=== PATIENT | female | born 1990 | race Caucasian/White ===

== ENCOUNTER 2019-12-28 13:18 | Emergency (ER) | payer MEDICAID, SELFPAY ==
[2019-12-28 13:32] VITALS: BP 128/92; PULSE 87; RESP 17; TEMP 37.2; O2SAT 100; BMI 28.3
--- NOTE | 2019-12-28 13:56 | US_ITS ---
WS: [id number] TRANSABDOMINAL FIRST TRIMESTER ULTRASOUND HISTORY: vaginal bleeding and abdominal cramping : 5 PARA: 4 COMPARISON: None available. FINDINGS: Cervical length is 3.2 cm; closed. Single live intrauterine . [place] rump length measuring 0.5 cm. Suggest 6 weeks 2 days gestation a due date of August 20, 2020 Yolk sac measures 0.2 cm. Gestational sac measures 6w2d cm. cardiac tones 129 BPM. Estimated date of delivery 08/20/2020. Activity is noted in the region of the crown-rump length. . Right ovary measures 1.2 cm x 3.0 cm x 1.2 cm. US/US OB <= 14 weeks fetus [id number] IMPRESSION: 6 weeks 2 day due date August 20, 2020
[2019-12-28 14:25] LABS: Basophils % 0.3 %; Eosinophils % 0.6 %; Hemoglobin 12.7 g/dL (11.5-15.3); Lymphocytes # 1.9 10^3/uL (0.8-4.8); Lymphocytes % 28.7 %; Mean Corpuscular HGB Conc 32.6 g/dL (30.0-36.0); Mean Corpuscular Hemoglobin 31.4 pg (28.0-34.0); Mean Corpuscular Volume 96.5 fL (81-99); Mean Platelet Volume 11.2 fL (7.4-10.4); Monocytes # 0.4 10^3/uL (0.2-0.9); Monocytes % 5.6 %; Neutrophils # 4.2 10^3/uL (1.8-7.7); Neutrophils % 64.5 %; Nucleated Red Blood Cells % 0 %; Platelet Count 192 10^3/cmm (130-400); Red Blood Count 4.04 10^6/uL (4.1-5.3); Red Cell Distribution Width 13.3 % (12.1-15.1); White Blood Count 6.6 10^3/uL (4.0-10.0)
[2019-12-28 14:52] LABS: Alanine Aminotransferase 8 U/L (0-33); Alkaline Phosphatase 66 IU/L (35-105); Anion Gap 16.8 (5-19); Aspartate Amino Transferase 11 U/L (0-32); Blood Urea Nitrogen 7 mg/dL (6-20); Calcium 9.7 mg/dL (8.5-10.5); Carbon Dioxide 22 mmol/L (22-29); Chloride 103 mmol/L (98-107); Globulin 2.8 g/dL (1.3-4.6); Glomerular Filtration Rate 98.3 mL/min (90-130); Glucose 85 mg/dL (65-115); Osmolality Calculated 281 mOsm/kg (285-295); Potassium 3.8 mmol/L (3.5-5.1); Sodium 138 mmol/L (136-145); Total Bilirubin 0.2 mg/dL (0.15-1.2); Total Protein 6.8 g/dL (6.6-8.7)
--- NOTE | 2019-12-28 15:09 | PC.NURSE ---
Patient is changing back into clothes, okay by doctor
[2019-12-28 15:27] LABS: Urine Appearance Hazy (CLEAR); Urine Color Yellow (Yellow); pH Urine 6 (5-7)
[2019-12-28 15:28] LABS: Add Urine Microscopic? YES; Bilirubin Urine Neg (NEGATIVE); Blood Urine Neg (Negative); Glucose Urine UA Norm (Normal); Ketones Urine Negative (Negative); Leukocyte Esterase Urine Negative (Negative); Nitrate Urine Positive (Negative); Protein Urine Neg (Negative); Urobilinogen Urine Norm (Negative)
[2019-12-28 15:30] LABS: RBC Urine 0-4 /hpf (0-2)
[2019-12-28 15:31] LABS: Add Urine Culture? No; Amorphous Sediment Urine 1+; Bacteria Urine 4+; Transitional Epi Cells Urine 0-4 /hpf
--- NOTE | 2019-12-28 15:36 | ED_ITS ---
HPI - General: Chief complaint: Vaginal Bleeding Stated complaint: /bleeding/cramping Time Seen by Provider: 12/28/19 13:33 Source: patient Mode of arrival: ambulatory Limitations: no limitations History of Present Illness: HPI Narrative: Patient is a 5 para 4 patient who presents to the emergency department with vaginal bleeding of 2 days duration. She states that she started cramping about 2 weeks ago but has been worse in the last 24 hours. She also said the bleeding became worse today. She has however not needed to use any menstrual pad. She denies any fever, vaginal discharge. MD Complaint: abdominal pain and vaginal bleeding Onset (ago): week(s) (2) Pain Consistency: intermittent Location: pelvis Severity: moderate Quality: Cramping Relieving factors: none Exacerbating factors: none Vaginal discharge: none Date of Last Menstrual Period: 11/11/19 Patient : Yes Number of Weeks : 7 OB History - Current : no complications OB History - Previous Pregnancies: no complications care: followed by OB Associated symptoms: Reports no associated symptoms and abdominal pain; Deny dysuria, headache(s), nausea or vomiting Related Data: : 5 Review of Systems General: Reports: 10 or more systems reviewed and unremarkable except in HPI and below Const: Denies: fever(s), chills or body aches Eyes: Denies: change in vision or blurry vision Card: Denies: palpitations, irregular heart rhythm, edema or swelling of feet/ankles Resp: Denies: dyspnea, productive cough or non-productive cough GI: Reports: abdominal pain; Denies: nausea or vomiting : Reports: vaginal bleeding; Denies: flank pain, difficulty voiding, dysuria, urinary frequency, urinary urgency or urinary hesitancy Musc: Denies: neck pain, back pain or extremity swelling Skin/Breast: Denies: rash, pruritus or erythema Neuro: Denies: headache(s), numbness in extremities or weakness in extremities Endo: Denies: polyuria, polydipsia or tired all the time PFSH ED PFSH: Social History Smoking and tobacco status: current every day smoker Female Reproductive History: Date of last menstrual period: 11/11/19 : 5 Physical Exam Const: COMMON NORMALS: no acute distress, average body habitus, patient oriented x3, no limitations, healthy appearing, alert and well nourished Neck/C-Spine: COMMON NORMALS: full ROM, supple, no meningeal signs, no JVD and No carotid bruits Resp: COMMON NORMALS: normal respiratory effort, No retractions, No use of accessory muscles, clear to auscultation bilaterally and percussion normal AUSCULTATION: clear to auscultation bilaterally PERCUSSION: percussion normal Cardio: COMMON NORMALS: no JVD, regular rate, regular rhythm, S1 normal heart sound present, S2 normal heart sound present, No gallops present (Cardio), No clicks present (Cardio), No murmurs present (Cardio), No rub (Cardio) and Peripheral pulses 2+ throughout RATE: regular rate RHYTHM: regular rhythm HEART SOUNDS: S1 normal heart sound present and S2 normal heart sound present PERIPHERAL PULSES: Peripheral pulses 2+ throughout GI: COMMON NORMALS: Normal to inspection, nondistended, normoactive bowel sounds present, Soft to palpation, non-tender, No hepatosplenomegaly present, no masses and no bruits PALPATION: Yes Soft to palpation and Yes No hepatosplenomegaly present : COMMON NORMALS: Yes no CVA tenderness BLADDER/KIDNEY EXAM: Yes no CVA tenderness SPECULUM EXAM - CERVIX: Yes Cervical os closed, No Tissue present in the cervical os, No Cervical bleeding, Yes mucoid cervix, Yes Abnormal cervical discharge present, No IUD string present, No Cervical lesion present, No Cervical mass present, No Cervical laceration present and No Cervical tenderness present BIMANUAL EXAM - VAGINA & UTERUS: No Cervical tenderness present Back/Pelvis: COMMON NORMALS: no CVA tenderness Extremity: COMMON NORMALS: normal to inspection, full ROM, capillary refill normal, no calf tenderness and no pedal edema Neuro: COMMON NORMALS: patient oriented x3 SENSORIUM/ORIENTATION: Yes alert MENINGEAL SIGNS: Yes no meningeal signs Skin: COMMON NORMALS: no rashes or lesions noted, no wounds, turgor normal, no jaundice, no petechiae and no mottling GENERAL SKIN EXAM: no rashes or lesions noted and turgor normal Procedures Perimortem Number of Weeks : 7 Course Reevaluation(s): Reevaluation #1: Discussed her lab and imaging findings with her. Ultrasound shows a single intrauterine , the fetus looks healthy and without concerns. UA suggestive of urinary tract infection. Other labs unremarkable. beta hCG levels at expected levels. We will discharge her home with a prescription for antibiotics. She is advised to call her data base administrator and schedule an appointment with them as soon as possible. She voiced unders tanding and all her questions were answered. Time: 15:36 Vital Signs: Vital signs: Vital Signs Temperature 98.9 F 12/28/19 13:32 Pulse Rate 87 12/28/19 13:32 Respiratory Rate 17 12/28/19 13:32 Blood Pressure 128/92 12/28/19 13:32 Pulse Oximetry 100 12/28/19 13:32 MDM - OB/Uterine Contractions MDM Narrative: Medical decision making narrative: 29-year-old female patient who is about 6 weeks presents to the emergency department with vaginal bleeding. She did not require menstrual pads and on examination no active bleeding was noted, no dried or old blood was seen in the vagina. Ultrasound was negative for acute findings and showed a viable single intrauterine fetus. UA was suggestive of a urinary tract infection and so she is discharged home on oral nitrofurantoin. She is to follow-up with her data base administrator. Medical Records: Attestation: I reviewed the patient's medical records. Lab Data: Attestation: I reviewed the patient's lab results. Labs: Lab Results 12/28/19 12/28/19 12/28/19 Range/Units 14:18 14:18 15:07 WBC 6.6 (4.0-10.0) 10^3/ uL RBC 4.04 L (4.1-5.3) 10^6/u L Hgb 12.7 (11.5-15.3) g/dL Hct 39.0 (37.0-47.0) % MCV 96.5 (81-99) fL MCH 31.4 (28.0-34.0) pg MCHC 32.6 (30.0-36.0) g/dL RDW 13.3 (12.1-15.1) % Plt Count 192 (130-400) 10^3/c mm MPV 11.2 H (7.4-10.4) fL Neut % (Auto) 64.5 % Lymph % (Auto) 28.7 % [place] % (Auto) 5.6 % Eos % (Auto) 0.6 % Baso % (Auto) 0.3 % Neut # (Auto) 4.2 (1.8-7.7) 10^3/u L Lymph # (Auto) 1.9 (0.8-4.8) 10^3/u L [place] # (Auto) 0.4 (0.2-0.9) 10^3/u L Eos # (Auto) 0.0 (0.0-0.8) 10^3/u L Baso # (Auto) 0.0 (0.0-0.1) 10^3/u L Nucleated RBC % (a uto) 0 % Nucleated RBCs # 0.0 /100WBC Sodium 138 (136-145) mmol/L Potassium 3.8 (3.5-5.1) mmol/L Chloride 103 (98-107) mmol/L Carbon Dioxide 22 (22-29) mmol/L Anion Gap 16.8 (5-19) BUN 7 (6-20) mg/dL Creatinine 0.7 (0.5-0.9) mg/dL GFR Calculation 98.3 (90-130) mL/min Glucose 85 (65-115) mg/dL Calculated Osmolal ity 281 L (285-295) mOsm/k g Calcium 9.7 (8.5-10.5) mg/dL Total Bilirubin 0.2 (0.15-1.2) mg/dL AST 11 (0-32) U/L ALT 8 (0-33) U/L Alkaline Phosphata se 66 (35-105) IU/L Total Protein 6.8 (6.6-8.7) g/dL Albumin 4.0 (3.5-5.2) g/dL Globulin 2.8 (1.3-4.6) g/dL Ser , Bill i-Qnt 4816.00 mIU/mL Urine Color Yellow (Yellow) Urine Appearance Hazy A (CLEAR) Urine pH 6 (5-7) Ur Specific Gravit y 1.010 (1.005-1.030) Urine Protein Neg (Negative) Urine Glucose (UA) Norm (Normal) Urine Ketones Negative (Negative) Urine Blood Neg (Negative) Urine Nitrate Positive H (Negative) Urine Bilirubin Neg (NEGATIVE) Urine Urobilinogen Norm (Negative) mg/dL Ur Leukocyte Flory ase Negative (Negative) Urine RBC 0-4 H (0-2) /hpf Urine WBC None (0-5) /hpf Ur Squamous Epith Cells 10-15 H (0-5) Ur Transition Epit h Cell 0-4 /hpf Amorphous Sediment 1+ Urine Bacteria 4+ H (NONE) Imaging Data^: US OB: Radiologist's impression: [address] [id number] Ultrasound Report Signed Patient: Deneen Barron #: [id number] : 1990Acct#:[id number] Age/Sex: 29 / FADM Date: 12/28/19 Loc: ERRoom/Bed: Attending Dr: Ordering Provider/Ordering MD: Callie Oconnell MD, [facility] [place] Date of Service: 12/28/19 Procedure(s): US OB <= 14 weeks fetus [id number] Accession Number(s): [id number] Report Number: [id number] WS: [id number] TRANSABDOMINAL FIRST TRIMESTER ULTRASOUND HISTORY: vaginal bleeding and abdominal cramping : 5 PARA: 4 COMPARISON: None available. FINDINGS: Cervical length is 3.2 cm; closed. Single live intrauterine . [place] rump length measuring 0.5 cm. Suggest 6 weeks 2 days gestation a due date of August 20, 2020 Yolk sac measures 0.2 cm. Gestational sac measures 6w2d cm. cardiac tones 129 BPM. Estimated date of delivery 08/20/2020. Activity is noted in the region of the crown-rump length. . Right ovary measures 1.2 cm x 3.0 cm x 1.2 cm. US/US OB <= 14 weeks fetus [id number] IMPRESSION: 6 weeks 2 day due date August 20, 2020 Dictated By:Cirilo Huang DO Signed By:Cirilo Huang DOSigned Date/Time:12/28/19 1506 Discharge Plan Discharge Patient Disposition: Home, Self-Care Clinical Impression: Urinary tract infection affecting , Vaginal bleeding Condition: Stable Prescriptions: New nitrofurantoin macrocrystal 100 mg capsule 100 mg PO BID 7 Days Qty: 14 RF: 0 Continued amoxicillin 500 mg Capsule 500 mg PO TID RF: 0 Zyrtec 10 mg Tablet 10 mg PO DAILY RF: 0 Pepcid 20 mg Tablet 20 mg PO BID PRN (Reason: unknown) RF: 0 Reglan 5 mg Tablet 5 mg PO QID PRN (Reason: unknown) RF: 0 28 mg iron- 800 mcg Tablet 1 tab PO DAILY RF: 0 Discharge Orders: Discharge Order (Routine); Ordered 12/28/19 Ordered By: Callie Oconnell Referrals: [facility] [Other] Patient Instructions: Urinary Tract Infection in Women (ED) Activity Restrictions/Additional Instructions: Return for any new or worsening symptoms. Take the antibiotic as prescribed. Continue your home medications. Follow-up with your data base administrator as soon as you can. Coding Level of Care Code ED Rate Inserter for Brenda Willaim
[2019-12-28 16:31] VITALS: BP 104/76; PULSE 77; RESP 16; O2SAT 99
== END 2019-12-28 16:00 | disposition home or self-care (01) ==
PROVIDERS: Emergency Provider Family Medicine
DX: O23.41 Unspecified infection of urinary tract in pregnancy, first trimester (principal); O46.91 Antepartum hemorrhage, unspecified, first trimester; O99.331 Smoking (tobacco) complicating pregnancy, first trimester; F17.210 Nicotine dependence, cigarettes, uncomplicated; Z3A.01 Less than 8 weeks gestation of pregnancy
CPT/HCPCS: 12345; 36415; 76801; 80053; 81001; 84702; 85025; 87210; 87491; 87591; 87661; 99283

== ENCOUNTER 2019-12-30 11:45 | Emergency (ER) | payer MEDICAID, SELFPAY ==
[2019-12-30 11:54] VITALS: BP 125/79; PULSE 94; RESP 18; TEMP 36.9; O2SAT 100; BMI 28.3
--- NOTE | 2019-12-30 12:23 | US_ITS ---
WS: [id number] TRANSABDOMINAL AND TRANSVAGINAL FIRST TRIMESTER ULTRASOUND HISTORY: cramping, bleeding : 5 PARA: 4 COMPARISON: None available. FINDINGS: Cervical length is 3.0 cm; closed. Single live intrauterine . [place] rump length measuring 0.7 cm. Yolk sac measures 0.2 cm. Gestational sac measures 6w4d cm. cardiac tones 131 BPM. Estimated date of delivery 08/20/2020. An intrauterine is observed. Right ovary measures 1.1 cm x 1.7 cm x 1.0 cm. Left ovary measures 2.0 cm x 2.1 cm x 1.8 cm. US/US OB <=14 wk fetus w transvag IMPRESSION: There is continued evidence of a intrauterine with heart rate c rown-rump length measures 6.4 cm at this point the fetus is not aborted.
[2019-12-30 12:25] LABS: Add Urine Microscopic? NO
[2019-12-30 12:28] LABS: Bilirubin Urine Neg (NEGATIVE); Blood Urine Neg (Negative); Glucose Urine UA Norm (Normal); Ketones Urine Negative (Negative); Leukocyte Esterase Urine Negative (Negative); Nitrate Urine Negative (Negative); Protein Urine Neg (Negative); Specific Gravity, Urine 1.005 (1.005-1.030); Urine Appearance Clear (CLEAR); Urine Color Yellow (Yellow); Urobilinogen Urine Norm (Negative); pH Urine 7 (5-7)
[2019-12-30 12:31] LABS: HCG Qualitative Urine. Positive (Negative)
[2019-12-30 12:33] VITALS: O2SAT 98
--- NOTE | 2019-12-30 12:33 | ED_ITS ---
HPI - Female Genitourinary General: Chief complaint: Urogenital-Female Stated complaint: 6 WEEKS PREG/VAG BLEEDING Time Seen by Provider: 12/30/19 11:57 History of Present Illness: HPI Narrative: This patient is a 29-year-old female who is a G5, P4. She is approximately 6 weeks . She has had some problems with her prior pregnancies but is carried out to term. She is never had vaginal bleeding with her prior pregnancies. She sees Dr. Mead. She came in a few days ago with some spotting vaginally. She had an ultrasound at that time that showed a 6-week 2-day IUP with a good heartbeat. Her quant at that time was around 4800. She is back today because this morning at around 930 she had an episode of bright red bleeding with clots in the toilet. She had one other lesser episode after that and now is back to just having spotting. She diaz s some discomfort in the suprapubic region and some cramping. She is very worried about a miscarriage. When she was treated here a few days ago she was started on Macrobid for UTI. Her urinary symptoms have resolved. MD elicited complaint: vaginal bleeding and possible miscarriage Associated symptoms: Deny abdominal pain, headache(s) or nausea Date of Last Menstrual Period: 11/11/19 Review of Systems General: Reports: 10 or more systems reviewed and unremarkable except in HPI and below Const: Denies: fever(s), chills, fatigue or malaise Eyes: Denies: change in vision ENMT: Reports: ear or mastoid pain; Denies: odynophagia Card: Denies: chest pain or swelling of feet/ankles Resp: Denies: dyspnea, productive cough or non-productive cough GI: Denies: abdominal pain, nausea or vomiting : Reports: urinary frequency, vaginal bleeding and pelvic pain; Denies: flank pain or difficulty voiding Musc: Denies: neck pain or back pain Skin/Breast: Denies: rash Neuro: Denies: headache(s), numbness in extremities or weakness in extremities Michael/Lymph: Denies: easy bruising or easy bleeding PFSH ED PFSH: Social History Smoking and tobacco status: current every day smoker Female Reproductive History: Date of last menstrual period: 11/11/19 Physical Exam Const: COMMON NORMALS: no acute distress, patient oriented x3, no limitations and alert GENERAL APPEARANCE: cooperative and comfortable HENMT: HEAD & SCALP: normal to inspection FACE & SINUS: normal facial exam Eye: GENERAL EYE: appearance normal, both eyes and all related structures Neck/C-Spine: COMMON NORMALS: supple, no meningeal signs and no JVD Chest: COMMONS NORMALS: normal inspection of the chest Resp: COMMON NORMALS: normal respiratory effort, No use of accessory muscles and clear to auscultation bilaterally AUSCULTATION: clear to auscultation bilaterally Cardio: COMMON NORMALS: no JVD, regular rate, regular rhythm and No murmurs present (Cardio) RATE: regular rate RHYTHM: regular rhythm GI: COMMON NORMALS: Normal to inspection, nondistended, normoactive bowel sounds present and Soft to palpation INSPECTION: Yes normal to inspection AUSCULTATION: Yes normoactive bowel sounds PALPATION: Yes Soft to palpation and Yes Tenderness to palpation present (GI) (Suprapubic) Back/Pelvis: COMMON NORMALS: thoracic and lumbar spine normal to inspection Extremity: COMMON NORMALS: normal to inspection Neuro: COMMON NORMALS: patient oriented x3, moves all extremities, no focal motor deficits and no sensory deficits noted SENSORIUM/ORIENTATION: Yes alert MENINGEAL SIGNS: Yes no meningeal signs Psych: COMMON NORMALS: mental status grossly normal, cooperative and normal affect Skin: COMMON NORMALS: no rashes or lesions noted and turgor normal GENERAL SKIN EXAM: no rashes or lesions noted and turgor normal Course ED course: 29-year-old healthy female with a approximately 6-week . She is having some bleeding and cramping. Her quantitative hCG was relatively low on her last check. Repeat today was elevated but not quite double as we would hope to see. Repeat ultrasound today showed again a IUP with a good heartbeat. Today's measurements were 6 weeks 4 days. She was reassured by this. She will go home and take it easy. She will follow-up with her OB doctor. She is going to continue the antibiotic although urine is at this point looking much better. Vital Signs: Vital signs: Vital Signs Temperature 98.4 F 12/30/19 11:54 Pulse Rate 85 12/30/19 14:37 Respiratory Rate 18 12/30/19 14:37 Blood Pressure 113/84 12/30/19 14:37 Pulse Oximetry 98 12/30/19 14:37 MDM - Female Lab Data: Labs: Lab Results 12/30/19 12/30/19 12/30/19 Range/Units 12:00 12:00 12:44 WBC 8.4 (4.0-10.0) 10^3/ uL RBC 4.40 (4.1-5.3) 10^6/u L Hgb 13.9 (11.5-15.3) g/dL Hct 41.9 (37.0-47.0) % MCV 95.2 (81-99) fL MCH 31.6 (28.0-34.0) pg MCHC 33.2 (30.0-36.0) g/dL RDW 13.2 (12.1-15.1) % Plt Count 217 (130-400) 10^3/c mm MPV 11.2 H (7.4-10.4) fL Neut % (Auto) 67.8 % Lymph % (Auto) 26.1 % [place] % (Auto) 5.3 % Eos % (Auto) 0.5 % Baso % (Auto) 0.2 % Neut # (Auto) 5.7 (1.8-7.7) 10^3/u L Lymph # (Auto) 2.2 (0.8-4.8) 10^3/u L [place] # (Auto) 0.5 (0.2-0.9) 10^3/u L Eos # (Auto) 0.0 (0.0-0.8) 10^3/u L Baso # (Auto) 0.0 (0.0-0.1) 10^3/u L Nucleated RBC % (a uto) 0 % Nucleated RBCs # 0.0 /100WBC Sodium (136-145) mmol/L Potassium (3.5-5.1) mmol/L Chloride (98-107) mmol/L Carbon Dioxide (22-29) mmol/L Anion Gap (5-19) BUN (6-20) mg/dL Creatinine (0.5-0.9) mg/dL GFR Calculation (90-130) mL/min Glucose (65-115) mg/dL Calculated Osmolal ity (285-295) mOsm/k g Calcium (8.5-10.5) mg/dL Total Bilirubin (0.15-1.2) mg/dL AST (0-32) U/L ALT (0-33) U/L Alkaline Phosphata se (35-105) IU/L Total Protein (6.6-8.7) g/dL Albumin (3.5-5.2) g/dL Globulin (1.3-4.6) g/dL HCG, Qual Positive H (Negative) Ser , Bill i-Qnt mIU/mL Urine Color Yellow (Yellow) Urine Appearance Clear (CLEAR) Urine pH 7 (5-7) Ur Specific Gravit y 1.005 (1.005-1.030) Urine Protein Neg (Negative) Urine Glucose (UA) Norm (Normal) Urine Ketones Negative (Negative) Urine Blood Neg (Negative) Urine Nitrate Negative (Negative) Urine Bilirubin Neg (NEGATIVE) Urine Urobilinogen Norm (Negative) mg/dL Ur Leukocyte Flory ase Negative (Negative) Blood Type Rho(D) Type Antibody Screen 12/30/19 12/30/19 12/30/19 Range/Units 12:44 12:44 12:44 WBC (4.0-10.0) 10^3/ uL RBC (4.1-5.3) 10^6/u L Hgb (11.5-15.3) g/dL Hct (37.0-47.0) % MCV (81-99) fL MCH (28.0-34.0) pg MCHC (30.0-36.0) g/dL RDW (12.1-15.1) % Plt Count (130-400) 10^3/c mm MPV (7.4-10.4) fL Neut % (Auto) % Lymph % (Auto) % [place] % (Auto) % Eos % (Auto) % Baso % (Auto) % Neut # (Auto) (1.8-7.7) 10^3/u L Lymph # (Auto) (0.8-4.8) 10^3/u L [place] # (Auto) (0.2-0.9) 10^3/u L Eos # (Auto) (0.0-0.8) 10^3/u L Baso # (Auto) (0.0-0.1) 10^3/u L Nucleated RBC % (a uto) % Nucleated RBCs # /100WBC Sodium 140 (136-145) mmol/L Potassium 4.2 (3.5-5.1) mmol/L Chloride 104 (98-107) mmol/L Carbon Dioxide 24 (22-29) mmol/L Anion Gap 16.2 (5-19) BUN 8 (6-20) mg/dL Creatinine 0.7 (0.5-0.9) mg/dL GFR Calculation 98.3 (90-130) mL/min Glucose 96 (65-115) mg/dL Calculated Osmolal ity 286 (285-295) mOsm/k g Calcium 10.1 (8.5-10.5) mg/dL Total Bilirubin 0.2 (0.15-1.2) mg/dL AST 14 (0-32) U/L ALT 10 (0-33) U/L Alkaline Phosphata se 74 (35-105) IU/L Total Protein 7.0 (6.6-8.7) g/dL Albumin 4.5 (3.5-5.2) g/dL Globulin 2.5 (1.3-4.6) g/dL HCG, Qual (Negative) Ser , Bill i-Qnt 6535.00 mIU/mL Urine Color (Yellow) Urine Appearance (CLEAR) Urine pH (5-7) Ur Specific Gravit y (1.005-1.030) Urine Protein (Negative) Urine Glucose (UA) (Normal) Urine Ketones (Negative) Urine Blood (Negative) Urine Nitrate (Negative) Urine Bilirubin (NEGATIVE) Urine Urobilinogen (Negative) mg/dL Ur Leukocyte Flory ase (Negative) Blood Type A Negative Rho(D) Type Negative Antibody Screen Negative Discharge Plan Discharge Patient Disposition: Home, Self-Care Clinical Impression: Miscarriage, threatened, early Condition: Stable Prescriptions: No Action amoxicillin 500 mg Capsule 500 mg PO TID RF: 0 Zyrtec 10 mg Tablet 10 mg PO DAILY RF: 0 Pepcid 20 mg Tablet 20 mg PO BID PRN (Reason: unknown) RF: 0 Reglan 5 mg Tablet 5 mg PO QID PRN (Reason: unknown) RF: 0 28 mg iron- 800 mcg Tablet 1 tab PO DAILY RF: 0 nitrofurantoin macrocrystal 100 mg capsule 100 mg PO BID 7 Days Qty: 14 RF: 0 Discharge Orders: Discharge Order (Routine); Ordered 12/30/19 Ordered By: Angela Layne Referrals: [facility] [Other] Discharge Diet: Usual diet Discharge Activity: Resume usual activity Patient Instructions: Threatened Miscarriage (ED) Activity Restrictions/Additional Instructions: Complete the antibiotic prescription. Rest, follow up with Dr. Mead. Discharge Date/Time: 12/30/19 14:37 Coding Level of Care Code ED Video Production Intern for Chg Fwd Exam Comprehensive
[2019-12-30 12:53] LABS: Basophils % 0.2 %; Eosinophils % 0.5 %; Hematocrit 41.9 % (37.0-47.0); Hemoglobin 13.9 g/dL (11.5-15.3); Lymphocytes # 2.2 10^3/uL (0.8-4.8); Lymphocytes % 26.1 %; Mean Corpuscular HGB Conc 33.2 g/dL (30.0-36.0); Mean Corpuscular Hemoglobin 31.6 pg (28.0-34.0); Mean Corpuscular Volume 95.2 fL (81-99); Mean Platelet Volume 11.2 fL (7.4-10.4); Monocytes # 0.5 10^3/uL (0.2-0.9); Monocytes % 5.3 %; Neutrophils # 5.7 10^3/uL (1.8-7.7); Neutrophils % 67.8 %; Nucleated Red Blood Cells % 0 %; Platelet Count 217 10^3/cmm (130-400); Red Cell Distribution Width 13.2 % (12.1-15.1); White Blood Count 8.4 10^3/uL (4.0-10.0)
[2019-12-30 13:03] LABS: Alanine Aminotransferase 10 U/L (0-33); Albumin Level 4.5 g/dL (3.5-5.2); Alkaline Phosphatase 74 IU/L (35-105); Anion Gap 16.2 (5-19); Aspartate Amino Transferase 14 U/L (0-32); Blood Urea Nitrogen 8 mg/dL (6-20); Calcium 10.1 mg/dL (8.5-10.5); Carbon Dioxide 24 mmol/L (22-29); Chloride 104 mmol/L (98-107); Globulin 2.5 g/dL (1.3-4.6); Glomerular Filtration Rate 98.3 mL/min (90-130); Glucose 96 mg/dL (65-115); Osmolality Calculated 286 mOsm/kg (285-295); Potassium 4.2 mmol/L (3.5-5.1); Sodium 140 mmol/L (136-145); Total Bilirubin 0.2 mg/dL (0.15-1.2)
--- NOTE | 2019-12-30 13:42 | PC.NURSE ---
portable ultrasound at bedside
[2019-12-30 13:47] VITALS: BP 130/87; PULSE 83; O2SAT 99
[2019-12-30 14:37] VITALS: BP 113/84; PULSE 85; RESP 18; O2SAT 98
== END 2019-12-30 14:37 | disposition home or self-care (01) ==
PROVIDERS: Emergency Provider Emergency Medicine
DX: O20.0 Threatened abortion (principal); Z3A.01 Less than 8 weeks gestation of pregnancy; O99.331 Smoking (tobacco) complicating pregnancy, first trimester; F17.210 Nicotine dependence, cigarettes, uncomplicated
CPT/HCPCS: 12345; 36415; 76801; 76815; 76817; 80053; 81003; 81025; 84702; 85025; 86850; 86900; 99281; 99283

== ENCOUNTER 2020-06-04 08:49 | Outpatient (CLI) | payer MEDICAID, SELFPAY ==
--- NOTE | 2020-06-04 09:05 | CT_ITS ---
WS: [id number] CT scan of the neck. Additional two-dimensional coronal and sagittal reconstruction was performed. Clinical Data: OTALGIA, RIGHT EAR Comparison: None. DLP: 2181.[address] scans at [facility] use at least one of these dose optimization techniques: automat ed exposure control; mA and/or kV adjustment per patient size (includes targeted exams where dose is matched to clinical indication); or iterative reconstruction. Findings: No lymphadenopathy is noted. The salivary glands are unremarkable. There is no prevertebral soft tiss ue swelling. The larynx is symmetric. The thyroid gland shows normal enhancement. The floor of the mo uth and parapharyngeal spaces are normal. The oral cavity is unremarkable. The carotid arteries bifurcate normally. Vertebral arteries are unremarkable. The cervical spine is u nremarkable. The lung apices show no abnormalities. The portions of the intracranial circulation whic h are seen demonstrate no abnormalities. No erosion of the skull or skull base is seen. The internal auditory canals, mastoid air cells, sella turcica, intraorbital contents and paranasal sinuses are no rmal. CT/CT neck w con* [id number] Impression: Negative CT scan of the neck.
[2020-06-04] MEDS: iohexol 300 mg/mL 100 mL Btl IV (09:17)
== END 2020-06-04 08:50 | disposition home or self-care (01) ==
PROVIDERS: PCP Nurse Practitioner; Visit Provider Otolaryngology
DX: H92.01 Otalgia, right ear (principal)
CPT/HCPCS: 70491; Q9967

== ENCOUNTER → 2020-10-02 12:06 | Outpatient (BNVA) | payer BC, MEDICAID, SELFPAY | PROVIDERS: PCP Nurse Practitioner; Visit Provider Obstetrics & Gynecology | DX: R30.0 Dysuria (principal); N72 Inflammatory disease of cervix uteri; N80.9 Endometriosis, unspecified; K59.00 Constipation, unspecified | CPT/HCPCS: 81000 ==

== ENCOUNTER 2024-06-21 09:48 | Outpatient (CLI) | payer MEDICAID, SELFPAY ==
--- NOTE | 2024-06-21 09:59 | USCV_ITS ---
Catalina Barron Age: 33 Gender: F : 1990 Exam Date: 06/21/2024 10:33 Ordering Phys: Whitney Magallanes Technologist: CT [place] [facility] [place]: PROCEDURES: Venous duplex imaging was performed in only the left upper extremity. The following venous structures were evaluated: internal jugular vein, subclavian vein, axillary vein, and brachial veins. In addition, the radial vein and ulnar vein. FINDINGS: no dvt thrombus in vein on wrist from IV site CONCLUSIONS No evidence of thrombus of the left upper extremity veins. Superficial thrombus in wrist vein from prior IV site Elieser Steinberg MD (Electronically Signed) Final Date: 21 June 2024 14:58 S
== END 2024-06-21 09:49 | disposition home or self-care (01) ==
LOC: RAD 09:51
PROVIDERS: PCP Nurse Practitioner Family; Visit Provider Nurse Practitioner
DX: I82.612 Acute embolism and thrombosis of superficial veins of left upper extremity (principal)
CPT/HCPCS: 93971

== ENCOUNTER → 2024-07-29 09:30 | Outpatient (BNVA) | payer MEDICAID, SELFPAY | PROVIDERS: PCP Nurse Practitioner Family; Visit Provider Nurse Practitioner Family | DX: R07.89 Other chest pain (principal) | CPT/HCPCS: 93005 ==

== ENCOUNTER → 2025-06-27 10:08 | Outpatient (BNVA) | payer MEDICAID, SELFPAY | PROVIDERS: PCP Nurse Practitioner Family; Visit Provider Nurse Practitioner Women's Health | DX: Z01.89 Encounter for other specified special examinations (principal); R53.83 Other fatigue | CPT/HCPCS: 82306; 82670 ==